=== PATIENT | female | born 1955 | race Caucasian/White ===

== ENCOUNTER → 2022-11-16 10:27 | Outpatient (BNVA) | payer MEDICARE, SELFPAY | PROVIDERS: PCP Family Medicine; Referring Provider Family Medicine; Visit Provider Surgery | DX: D50.9 Iron deficiency anemia, unspecified (principal); K57.90 Diverticulosis of intestine, part unspecified, without perforation or abscess without bleeding; K21.9 Gastro-esophageal reflux disease without esophagitis; R76.8 Other specified abnormal immunological findings in serum; K58.9 Irritable bowel syndrome, unspecified | CPT/HCPCS: 99203; 99242 ==

== ENCOUNTER 2022-11-24 09:02 | Day surgery (SDC) | payer MEDICARE, SELFPAY ==
--- NOTE | 2022-11-23 20:10 | W.COLOREPORT ---
Date of service: 11/24/22 Time of Service: 11:29 Colonoscopy Report Date of procedure: 11/24/22 Pre-op diagnosis general: iron defecient anemia Post-op diagnosis procedure note: other (Diverticula) Surgeon: Em Tate Anesthesia Type: General:No Airway Estimated blood loss (mL): 0 Pathology: other Complications: None Disposition: same day Prep: Miralax/Dulcolax Retraction Time: 9 Procedure Description: After informed consent was obtained the patient was taken to the procedure room and placed in a left decubitous position. Monitors were applied and a time out was done. The patients name, date of , procedure, allergies to medications and metal in their body was reviewed. The patient was then sedated. Once sedated and comfortable a rectal exam was done. External exam was normal. Internal exam revealed a normal sphincter tone and no palpable masses. The scope was then introduced and retrofelexed. No internal hemorrhoids were identified. The scope was then advanced to the cecum w/out difficulty. The TI and appendiceal orifice were identified. The prep was BBPS 2 in all segments for a total of 6. The scope was then slowly retracted over 9 minutes back into the rectum. there are no polyps or AVMs visualized today. She does have multiple large mouth diverticula confined to the sigmoid colon: moderate disease. There is no signs of active bleeding or infection.. The scope was removed and the patient was woken up and taken back to Same day surgery in stable condition. The patient tolerated the procedure well and there were no immediate complications. Follow up: The patient should follow up in 10 years unless they develop changes in bowel habits or other new gastrointestinal complaints.
--- NOTE | 2022-11-23 20:11 | PDOC.DSDIS_ITS ---
Date of service: 11/24/22 Time of Service: 11:31 Discharge Plan Disposition Patient Disposition: Home Condition: Good Discharge Details Reason For Visit: colon scope Attending Provider: Em Tate Primary Care Provider: Madeleine López Home Meds and New Rx's Prescriptions: Continued albuterol sulfate 90 mcg/actuation HFA aerosol inhaler 2 puff inhalation Q6H PRN ferrous sulfate [FeroSul] 325 mg (65 mg iron) tablet 325 mg PO DAILY multivitamin [Daily Multiple] 1 EACH tablet 1 ea PO DAILY loratadine [Claritin RediTabs] 10 MG tablet,disintegrating 10 mg PO PRN biotin 5 MG tablet 5 mg PO DAILY Probiotic 1 EACH capsule, sprinkle 1 ea PO DAILY cholecalciferol (vitamin D3) [Vitamin D3] 2,000 UNIT capsule 2,000 unit PO DAILY famotidine 40 mg tablet 40 mg PO DAILY pantoprazole [Protonix] 40 mg tablet,delayed release (DR/EC) 40 mg PO DAILY spironolactone 50 mg tablet 50 mg PO DAILY lidocaine [Lidoderm] 5 % adhesive patch,medicated 1 patch topical DAILY Rx Instructions: leave on most painful area for up to 12 hrs ondansetron 4 mg tablet,disintegrating 4 mg PO Q6H atenolol 25 mg tablet 25 mg PO DAILY iron,carbonyl-vitamin C 100-250 mg tablet 1 tab PO DAILY magnesium chloride 64 mg tablet extended release 64 mg PO TID Discontinued polyethylene glycol 3350 17 gram/dose powder 238 g PO ONCE Qty: 238 0RF Rx Instructions: take per colonoscopy instructions bisacodyl [Dulcolax (bisacodyl)] 5 mg tablet,delayed release (DR/EC) 5 mg PO ONCE Qty: 4 0RF Rx Instructions: take per colonoscopy instructions Discharge Instructions Additional Instructions: [facility] Colonoscopy Post- Op Instructions Instructions for Everyone who is given Anesthesia: For your safety, please do the following for the next twenty-four (24) hours: *Do Not operate a motor vehicle (car, truck, motorcycle, etc.) *Do Not drink alcoholic beverages or use any recreational drugs for the first 24 hours or while taking pain medications. The medications in your body may have a reaction that can be dangerous. *Do Not make any important decisions or sign any important papers. Findings: -Moderate diverticula of the sigmoid colon. Make sure you are moving your bowels on a regular basis and not straining to go to the bathroom. If you find that you have problems with constipation, consider starting a fiber supplement such as Metamucil. Follow up: -Repeat colonoscopy in 10 years time 1. No lifting over 20 pounds or strenuous activity for the first 24 hours after your procedure. After 24 hours there are no restrictions on your activity but you may feel fatigued for a few days. 2. After you arrive home you may have a light meal and return to your normal diet as you can tolerate it without feeling sick to your stomach. 3. You may have a bloated, gaseous feeling in your belly (abdomen) after a colonoscopy. Passing gas and belching will help. Walking or lying down on your left side with your knees flexed may relieve the discomfort. Call the office at [phone] (Office) or [phone] (Hospital) right away if you notice any of the following: a.Vomiting of blood or ?coffee ground stools?. b.Rectal bleeding 1Tbsp, blood clots or continuous bleeding. c.Severe belly (abdominal) pain. d.A hard distended belly (abdomen) and an inability to pass gas. 4. Please don?t expect to have a normal BM (bowel movement) for 2-3 days after your procedure. 5. If there are questions regarding the findings of your procedure, please contact your doctor 6. If you are unable to contact your doctor with a problem, contact the hospital at [phone]. 7. Continue all your regular medications unless directed otherwise. I understand the above instructions and have no questions. Signature of Patient or Adult Escort Name of Responsible Adult Escort Signature of Nurse Date/Time Activity:: see above Diet:: see above Discharge Orders Discharge Orders: Discharge Order (Routine); Ordered 11/24/22 Ordered By: Em Tate DS: Diagnosis Discharge Diagnosis (1) Chronic iron deficiency anemia: Status: Acute Asessment and Plan: ? The patient is seen and examined after their colonoscopy.? The patient has been able to pass gas.? They are not having abdominal pain.? They have been able to tolerate liquids and a snack.? They do not have any nausea or vomiting.? They are not having any chest pain or shortness of breath.??? They are not having any rectal bleeding. Their vital signs have been stable-see nursing notes.? ? We discussed findings during their colonoscopy, and any biopsies that were done/polyps that were removed. The patient will be sent a letter with any biopsy results, and when to repeat the colonoscopy.-see discharge instructions.? ? Patient was given explicit instructions to follow-up regarding colonoscopy-refer to discharge instructions.? We reviewed resumption of medications.? Patient verbalized understanding and discharged in stable and satisfactory condition- See nursing notes.? (2) Diverticulosis: Status: Acute (3) Family history of Crohn's disease: Status: Acute (4) Difficult intravenous access: Status: Acute (5) Anemia, iron deficiency: Status: Acute (6) Asthma: Status: Chronic (7) Fibromyalgia: Status: Acute (8) Gastritis: (9) Gastrointestinal food sensitivity: (10) GERD (gastroesophageal reflux disease): (11) History of breast cancer: (12) Spinal stenosis: (13) Obesity:
[2022-11-24 09:17] VITALS: BP 109/76; PULSE 77; RESP 19; TEMP 36.7; O2SAT 100
[2022-11-24] MEDS: Lactated Ringers 1,000 ML 80 ML IV (09:44)
--- NOTE | 2022-11-24 10:17 | ANES.PREOP_ITS ---
General Info Date of Service Date Performed: 11/24/22 Height: 5 ft 5 in Weight: 92.1 kg Body Mass Index (BMI): 33.7 Surgical Procedure: Operation Date: 11/24/22 09:50 Proposed Procedure Side Surgeon p Colonoscopy, possible polypectomy Em Tate DO Actual Procedure Side Surgeon p Colonoscopy, possible polypectomy Not Applicable Em Tate DO Pre-Op Diagnosis Post-Op Diagnosis colon scope Meds Allergies and Home Medications Allergies Allergy/AdvReac Type Severity Reaction Status Date / Time meperidine HCl [From Demerol] Allergy Severe Other (See Verified 11/24/22 09:32 Comment) Penicillins Allergy Severe anaphylaxis Verified 11/24/22 09:32 azithromycin AdvReac Severe chest pain Verified 11/24/22 09:32 dexlansoprazole AdvReac Intermediate dizziness Verified 11/24/22 09:32 [From Dexilant] fluticasone propionate AdvReac Intermediate sores in Verified 11/24/22 09:32 [From Flonase] nose ciprofloxacin AdvReac Verified 11/24/22 09:32 meloxicam AdvReac Verified 11/24/22 09:32 sulfamethoxazole AdvReac Verified 11/24/22 09:32 [From Bactrim] trimethoprim [From Bactrim] AdvReac Verified 11/24/22 09:32 IVP dye Allergy Mild rash Uncoded 11/24/22 09:32 opiates AdvReac Intermediate arrythmias Uncoded 11/24/22 09:32 Home Medication Medication Instructions Recorded biotin 5 mg tablet 5 mg PO DAILY 03/30/17 cholecalciferol (vitamin D3) 50 2,000 unit PO DAILY 03/30/17 mcg (2,000 unit) capsule (Vitamin D3) lactobacillus combo no.11 15 1 ea PO DAILY 03/30/17 billion cell sprinkle capsule (Probiotic) loratadine 10 mg disintegrating 10 mg PO PRN 03/30/17 tablet (Claritin RediTabs) multivitamin (Daily Multiple 1 ea PO DAILY 03/30/17 tablet) albuterol sulfate 90 mcg/actuation 2 puff inhalation Q6H PRN 02/07/21 aerosol inhaler ferrous sulfate 325 mg (65 mg 325 mg PO DAILY 02/07/21 iron) tablet (FeroSul) famotidine 40 mg tablet 40 mg PO DAILY 05/11/22 lidocaine 5 % topical patch 1 patch topical DAILY 05/11/22 (Lidoderm) ondansetron 4 mg disintegrating 4 mg PO Q6H 05/11/22 tablet pantoprazole 40 mg tablet,delayed 40 mg PO DAILY 05/11/22 release (Protonix) spironolactone 50 mg tablet 50 mg PO DAILY 05/11/22 atenolol 25 mg tablet 25 mg PO DAILY 11/02/22 iron,carbonyl 100 mg-vitamin C 250 1 tab PO DAILY 11/02/22 mg tablet magnesium chloride 64 mg 64 mg PO TID 11/02/22 tablet,extended release Current Visit Medications: Current Medications Generic Name Dose Route Start Last Admin Trade Name Freq PRN Reason Stop Dose Admin Hyoscyamine Sulfate 0.125 mg 11/24/22 08:08 Hyoscyamine 0.125 Mg Sl/Oral/Chew SL 12/24/22 08:07 DIRECTED PRN Ringer's Solution 1,000 mls @ 80 mls/hr 11/24/22 06:00 11/24/22 09:44 IV 12/23/22 23:59 80 mls/hr INFUSION AMADOR Administration IV Miscellaneous Supplies 1 each 11/24/22 06:00 Iv Access IV 12/23/22 23:59 DIRECTED AMADOR Ondansetron HCl 4 mg 11/23/22 20:08 Ondansetron 4 Mg/2 Ml Vial IVP 12/23/22 20:07 Q4H PRN PRN Nausea / Vomiting Sodium Chloride 0 ml 11/24/22 06:00 Normal Saline Flush 10 Ml Syr IV 12/23/22 23:59 PRN PRN Sodium Chloride 0 ml 11/24/22 06:00 Normal Saline 10 Ml Vial IJ 12/23/22 23:59 DIRECTED PRN Sterile Water 0 ml 11/24/22 06:00 Water,Injection,Sterile 10 Ml Vial IJ 12/23/22 23:59 DIRECTED PRN PFSH Active Problems Active Problems: Problem Status Onset Code Chronic iron deficiency anemia D50.9 Diverticulosis K57.90 Family history of Crohn's disease Z83.79 Difficult intravenous access Z78.9 Anemia, iron deficiency D50.9 Asthma J45.909 Pulmonary nodule R91.1 Fibromyalgia M79.7 Chronic knee pain M25.569, G89.29 Environmental allergies Z91.09 Medical History Medical History Allergic asthma Allergic sinusitis Aortic valve sclerosis Arthritis of both knees Chronic left shoulder pain Chronic pain of right knee Chronic sinusitis Diverticulitis Elevated antinuclear antibody (ANDREA) level Gastritis Gastrointestinal food sensitivity GERD (gastroesophageal reflux disease) H/O supraventricular tachycardia History of breast cancer right age 34 Hypomagnesemia IBS (irritable bowel syndrome) Mitral valve regurgitation Obesity RLQ abdominal pain Spinal stenosis L3-4 and L4-5,mild disc herniation and facet arthritis on MRI 05/2015. Surgical History Surgical History H/O mastectomy rt 1989 H/O umbilical hernia repair 04/05/2017 H/O: section History of carpal tunnel release lt Hx of arthroscopy of shoulder S/P laparoscopic cholecystectomy 02/2009 S/P right knee arthroscopy 1995 and 10/2019 S/P total hysterectomy and BSO (bilateral salpingo-oophorectomy) for leiomyoma and ovarian cyst. Tobacco Smoking/Tobacco Use Status: Former Tobacco Use Alcohol Alcohol Intake: current Alcohol intake frequency: holidays/special occasions only Details: 4 PER MONTH Substance Use Substance use type: does not use Vital Signs and Lab Results Vital Signs Most Recent Vital Signs in EMR: Most Recent Vital Signs Temp Pulse Resp BP Pulse Ox 36.7 C 77 19 109/76 100 11/24/22 09:17 11/24/22 09:17 11/24/22 09:17 11/24/22 09:17 11/24/22 09:17 Lab Results Blood Type / Crossmatch: No Data to Display Complete Blood Count: 2 No Data to Display Complete Metabolic Panel: No Data to Display Liver Function Panel: No Data to Display Coagulation Panel: No Data to Display Cardiac Panel: No Data to Display Arterial Blood Gas: No Data to Display Venous Blood Gas: No Data to Display Pancreas Panel: No Data to Display Thyroid Panel: No Data to Display Infectious Disease: No Data to Display Blood Cultures: No Data to Display Toxicology Panel: No Data to Display Anesthesia Assessment and Plan Anesthesia History Personal History: No History of Anesthesia Complications Family History: No Family History of Anesthesia Complications Exercise Tolerance Exercise Tolerance: Metabolic Equivalents>4 Pertinent Negatives Pertinent Negatives: No Symptoms of GERD Cardiac & Pulmonary Exam Cardiac Exam: Normal S1/S2 Heart Sounds Pulmonary Exam: Clear Bilateral Breath Sounds Implantable Cardiac Device Does patient have a Pacemaker or an ICD?: No Airway Exam Known Difficult Airway: No Mallampati Class: 1 Mouth Opening: Normal (> 3cm) Thyromental Distance: Greater than 3 cm Neck Range of Motion: Full ROM Neck Circumference: Normal Teeth Condition: Normal Dentition ASA Classification ASA Score: ASA 3 Emergency Case?: No NPO Status NPO Status: NPO Clears >2 hours, Solids >8 hours Anesthesia Plan Resuscitation Status: Full Code Anesthesia Technique: General Anesthesia Airway Planned: Natural Airway Monitors Used: Standard Monitors
[2022-11-24 10:22] VITALS: BMI 33.7
[2022-11-24 11:15] VITALS: BP 107/77; PULSE 66; RESP 20; TEMP 36.5; O2SAT 99
[2022-11-24 11:45] VITALS: BP 128/66; PULSE 67; RESP 18; TEMP 36.4; O2SAT 100
[2022-11-24] MEDS: Ketorolac 15 MG/ML VIAL IVP (11:58)
== END 2022-11-24 12:24 | disposition home or self-care (01) ==
PROVIDERS: PCP Family Medicine; Visit Provider Surgery
PROC: 0DJD8ZZ Inspection of Lower Intestinal Tract, Via Natural or Artificial Opening Endoscopic (ICD-10-PCS; CPT 45378; principal; 2022-11-24 09:45)
DX: D50.9 Iron deficiency anemia, unspecified (principal); K57.30 Diverticulosis of large intestine without perforation or abscess without bleeding
CPT/HCPCS: 45378; J1885

== ENCOUNTER → 2023-03-13 08:11 | Outpatient (BNVA) | payer MEDICARE, SELFPAY | PROVIDERS: PCP Family Medicine; Referring Provider Family Medicine; Visit Provider Psychiatry & Neurology Neurology | DX: M54.50 Low back pain, unspecified (principal); M54.16 Radiculopathy, lumbar region; G25.81 Restless legs syndrome | CPT/HCPCS: 99215 ==